=== PATIENT | male | born 2000 | race Two or more races ===

== ENCOUNTER 2023-01-25 19:25 | Emergency (ER) | payer BC ==
[~2023-01-25] VITALS: Ht 185.4 cm; Wt 70.3 kg
[2023-01-25] MEDS ORDERED: DOXY50CA2 PO (19:41)
[2023-01-25] MEDS ORDERED: ASPIRIN 81 MG TAB.CHEW PO ONE (19:45)
[2023-01-25] MEDS ORDERED: ASPIRIN 81 MG TAB.CHEW ONE (19:54)
[2023-01-25 20:08] LABS: BASOPHILS # (AUTO) 0.1 K/UL (0.0-0.2); BASOPHILS % (AUTO) 2.1 % (0.0-2.0); EOSINOPHILS % (AUTO) 1.1 % (0.0-7.0); HEMATOCRIT 43.2 % (36.7-47.1); HEMOGLOBIN 14.6 g/dL (12.5-16.3); LYMPHOCYTES # (AUTO) 1.6 K/uL (0.8-4.8); LYMPHOCYTES % (AUTO) 39.8 % (20.5-51.5); MEAN CORPUSCULAR HEMOGLOBIN 30.8 uug (23.8-33.4); MEAN CORPUSCULAR HGB CONC 34 g/dL (32.5-36.3); MEAN CORPUSCULAR VOLUME 91.2 fL (73.0-96.2); MONOCYTES # (AUTO) 0.4 K/uL (0.1-1.30); MONOCYTES % (AUTO) 9.7 % (0.0-11.0); NEUTROPHILS # (AUTO) 1.9 K/uL (1.8-8.9); NEUTROPHILS % (AUTO) 47.3 % (38.5-71.5); PLATELET COUNT (AUTO) 169 K/uL (152-348); RED BLOOD CELL COUNT(AUTO) 4.74 MIL/uL (4.06-5.63); RED CELL DISTRIBUTION WIDTH 13.2 % (12.1-16.2); WHITE BLOOD COUNT (AUTO) 4.1 K/uL (3.6-10.2)
[2023-01-25 20:23] LABS: DIFFERENTIAL COMMENT 1
[2023-01-25 20:37] LABS: CALCIUM 9.1 mg/dL (8.5-10.1); CARBON DIOXIDE 29 mmol/L (21-32); CHLORIDE 103 mmol/L (98-107); CREATININE 1.3 mg/dL (0.6-1.3); GLUCOSE 93 mg/dL (74-106); SODIUM SERUM 141 mmol/L (136-145); UREA NITROGEN, BLOOD 18 mg/dL (7-18)
[2023-01-25 20:49] LABS: ALANINE AMINOTRANSFERASE 40 U/L (16-63); ALBUMIN 4.5 g/dL (3.4-5.0); ALKALINE PHOSPHATASE 58 U/L (50-136); ASPARTATE AMINOTRANSFERASE 15 U/L (15-37); BILIRUBIN,DIRECT 0.2 mg/dL (0.0-0.2); BILIRUBIN,TOTAL 0.7 mg/dL (0.2-1.0); NT-PRO BNP 13 pg/mL (0-125); TOTAL PROTEIN, SERUM 7.5 g/dL (6.4-8.2)
[2023-01-25] MEDS ORDERED: IBUP-1490 PO (20:58)
[2023-01-25] MEDS: HYDROCODONE/APAP 5-325MG TABLET PO ONE ×2 (21:00→21:04)
[2023-01-25] MEDS ORDERED: IBUPROFEN 600 MG TABLET ONE (21:00)
[2023-01-25] MEDS ORDERED: HYDROCODONE/APAP 5-325MG TABLET ONE (21:00)
[2023-01-25] MEDS: IBUPROFEN 600 MG TABLET PO ONE ×2 (21:01→21:04)
[2023-01-25 21:14] VITALS: BP 127/66; TEMP 98.2; O2SAT 99
== END 2023-01-25 21:15 | disposition left against medical advice (07) ==
LOC: ER 19:35
DX: R07.89 Other chest pain (principal); Z79.1 Long term (current) use of non-steroidal anti-inflammatories (NSAID); Z79.2 Long term (current) use of antibiotics
CPT/HCPCS: 36415; 71045; 84484; 85025; 93005; A4663